=== PATIENT | female | born 1945 | race Caucasian/White ===

== ENCOUNTER 2017-09-05 08:25 | Day surgery (SDC) | payer MEDICARE ==
[~2017-09-05] VITALS: Ht 154.9 cm; Wt 53.9 kg
[~2017-09-05 08:25] MED LIST: ACETAMINOPHEN 325 MG TAB PO PRN; ALLO100T PO; ATEN50TA2 PO; BIMA01SOL OU; BSS with VANC/TOB/EPI for EYE CASES IR ONE; CALC600T60 PO; COSO1SOL3 OU; CYCLOPENTOLATE 2% OPHTH SOLN 2ML BTL OD ONE; EYE-TAB2 PO; FURO40TA2 PO; LIDOCAINE 3.5 % 1ML OPHTH TOPICAL GEL OU ONE; MAGN1TAB25 PO; OFLOXACIN 0.3 % (OCUFLOX) OPTH SOL 5ML OD ONE; PHENYLEPHRINE 2.5% OPHTH SOL 2ML OD ONE; POTA1TAB23 PO; PROPARACAINE 0.5% OPHTH SOL 15ML XX PRN; TROPICAMIDE 1% OPHTH SOLN 2ML OD ONE; TYLE500T78 PO; VITA100067 PO
[2017-09-05] MEDS ORDERED: MAGN64TASA PO (09:17)
[2017-09-05] MEDS ORDERED: POVIDONE-IODINE 5% OPHTH PREP SOL 30ML As Ordered ONE (10:02)
[2017-09-05] MEDS ORDERED: HEALON DUET (HEALON 10MG/ML 0.55ML & HEALON ENDOCOAT 30MG/ML 0.85ML) As Ordered ONE (10:02)
[2017-09-05] MEDS ORDERED: LIDOCAINE 1% SDV 5 ML VIAL As Ordered ONE (10:02)
[2017-09-05] MEDS ORDERED: MIDAZOLAM INJ 2 MG/2 ML VIAL (J2250) As Ordered ONE (10:05)
[2017-09-05] MEDS ORDERED: fentaNYL 100 MCG/2 ML INJECTION (J3010) As Ordered ONE (10:05)
[2017-09-05] MEDS ORDERED: MOXIFLOXACIN IN BSS 0.25MG/0.25ML INTRACAMERAL INJ (OR EYE ONLY)(J2280) As Ordered ONE (10:27)
[2017-09-05 11:15] VITALS: BP 175/82
[2017-09-05] MEDS ORDERED: TRIMETHOBENZAMIDE 300 MG CAP PO PRN (11:15)
[2017-09-05] MEDS ORDERED: KETOROLAC 0.5% OPHTH SOLN XX ONE (11:15)
[2017-09-05] MEDS ORDERED: AcetaZOLAMIDE 500 MG ER CAP PO ONE (11:15)
--- NOTE | 2017-09-14 14:02 | RO ---
DATE OF PROCEDURE: 09/05/2017 PREOPERATIVE DIAGNOSIS: Cataract right eye and glaucoma right eye. POSTOPERATIVE DIAGNOSIS: cataract right eye and glaucoma right eye. PROCEDURE: Phacoemulsification with intraocular lens implantation JUAN R, power 23 diopters, right eye and endocyclophotocoagulation right eye. SURGEON: Mino Robles MD COMMERCIAL FIELD INSPECTOR: None. ANESTHESIA: COMPLICATIONS: None. PROCEDURE IN DETAIL: The patient was brought to the operating room and laid in supine position. The eye was prepped and draped in a sterile fashion for ophthalmic surgery and a lid speculum was placed. A side port incision was made and EndoCoat was injected into the anterior chamber. A temporal clear corneal incision was then made with a 2.5 mm keratome and capsulorrhexis done. After hydrodissection, phacoemulsification was done in a divide and conquer method within the capsular bag. The extra cortical material was then aspirated using irrigation and aspiration cannula. Healon was then placed in the capsular bag followed by placement of the intraocular lens. Healon was then placed in the ciliary sulcus to visualize the ciliary processes on the video screen with the help of the EndoProbe. The endocyclophotocoagulation was then done along 280 degrees at 0.25 milliwatts. Good results were noted as noted by the shrinking of the ciliary processes. Excess viscoelastic was then aspirated. Wound was hydrated. Lid speculum removed and patient returned to the recovery room in stable condition.
== END 2017-09-05 11:45 | disposition home or self-care (01) ==
LOC: M SDC 08:25
PROVIDERS: ATTEND Ophthalmology
DX: H26.9 Unspecified cataract (principal); H40.9 Unspecified glaucoma; I10 Essential (primary) hypertension; E78.5 Hyperlipidemia, unspecified; M10.9 Gout, unspecified; J44.9 Chronic obstructive pulmonary disease, unspecified; Z88.0 Allergy status to penicillin; Z79.899 Other long term (current) drug therapy; Z90.710 Acquired absence of both cervix and uterus
CPT/HCPCS: 66711; 66984; J2250; J2280; J3010; V2632

== ENCOUNTER 2018-03-20 06:13 | Day surgery (SDC) | payer MEDICARE ==
[~2018-03-20 06:13] MED LIST changes: +ACETAMINOPHEN 325 MG TAB PO; -ACETAMINOPHEN 325 MG TAB PO PRN; -ALLO100T PO; -ATEN50TA2 PO; -BIMA01SOL OU; -BSS with VANC/TOB/EPI for EYE CASES IR ONE; -CALC600T60 PO; -COSO1SOL3 OU; -CYCLOPENTOLATE 2% OPHTH SOLN 2ML BTL OD ONE; -EYE-TAB2 PO; -FURO40TA2 PO; -LIDOCAINE 3.5 % 1ML OPHTH TOPICAL GEL OU ONE; -MAGN1TAB25 PO; -OFLOXACIN 0.3 % (OCUFLOX) OPTH SOL 5ML OD ONE; -PHENYLEPHRINE 2.5% OPHTH SOL 2ML OD ONE; -POTA1TAB23 PO; -PROPARACAINE 0.5% OPHTH SOL 15ML XX PRN; +SLF 3 ML SYR IV; -TROPICAMIDE 1% OPHTH SOLN 2ML OD ONE; -TYLE500T78 PO; -VITA100067 PO
[2018-03-20] MEDS: ACETYLCHOLINE OPHTH SOLN 1% 2ML (MIOCHOL-E) As Ordered (06:33)
[2018-03-20] MEDS: CYCLOPENTOLATE 2% OPHTH SOLN 2ML BTL OS (06:39)
[2018-03-20] MEDS: SLF 3 ML SYR IV (06:39)
[2018-03-20] MEDS: TROPICAMIDE 1% OPHTH SOLN 2ML OS (06:39)
[2018-03-20] MEDS: LIDOCAINE 3.5 % 1ML OPHTH TOPICAL GEL OU (06:39)
[2018-03-20] MEDS: OFLOXACIN 0.3 % (OCUFLOX) OPTH SOL 5ML OS (06:39)
[2018-03-20] MEDS: PHENYLEPHRINE 2.5% OPHTH SOL 2ML OS (06:39)
[2018-03-20] MEDS ORDERED: PHENYLEPHRINE HCL 10 % OPHTH. SOL 5ML OS (07:00)
[2018-03-20] MEDS ORDERED: PROPARACAINE 0.5% OPHTH SOL 15ML OS (07:01)
[2018-03-20] MEDS ORDERED: fentaNYL 100 MCG/2 ML INJECTION (J3010) As Ordered (07:25)
[2018-03-20] MEDS ORDERED: MIDAZOLAM INJ 2 MG/2 ML VIAL (J2250) As Ordered (07:25)
[2018-03-20] MEDS: POVIDONE-IODINE 5% OPHTH PREP SOL 30ML As Ordered (07:35)
[2018-03-20] MEDS: LIDOCAINE 1% SDV 5 ML VIAL As Ordered (07:40)
[2018-03-20] MEDS: BSS with VANC/TOB/EPI for EYE CASES IR (07:41)
[2018-03-20] MEDS: HEALON DUET (HEALON 10MG/ML 0.55ML & HEALON ENDOCOAT 30MG/ML 0.85ML) As Ordered (07:41)
[2018-03-20] MEDS ORDERED: AcetaZOLAMIDE 500 MG ER CAP As Ordered (07:54)
[2018-03-20] MEDS: AcetaZOLAMIDE 500 MG ER CAP PO (08:09)
[2018-03-20] MEDS: KETOROLAC 0.5% OPHTH SOLN OS (08:09)
[2018-03-20] MEDS ORDERED: ACETAMINOPHEN TAB 650MG DOSE (2X325MG) PO (08:15)
[2018-03-20] MEDS ORDERED: LR 1,000 ML IV (08:15)
[2018-03-20] MEDS ORDERED: TRIMETHOBENZAMIDE 300 MG CAP PO (08:15)
== END 2018-03-20 08:35 | disposition home or self-care (01) ==
LOC: M SDC 06:13
DX: H26.9 Unspecified cataract (principal); H40.812 Glaucoma with increased episcleral venous pressure, left eye; I10 Essential (primary) hypertension; Z88.1 Allergy status to other antibiotic agents; Z79.899 Other long term (current) drug therapy; Z87.891 Personal history of nicotine dependence
CPT/HCPCS: 66984

== ENCOUNTER → 2020-10-30 | Outpatient (CLI) | payer MEDICARE ==
[~2020-10-30] MED LIST changes: -ACETAMINOPHEN 325 MG TAB PO; +ALLO100T PO; +ATEN50TA2 PO; +BIMA01SOL OU; +BRIM0.2S13 OU; +CALC600T60 PO; +COSO1SOL3 OU; +EYE-TAB2 PO; +FURO40TA2 PO; +MAGN1TAB26 PO; +MAGN64TASA PO; +POTA1TAB23 PO; -SLF 3 ML SYR IV; +TYLE500T78 PO; +VITA100067 PO
[2020-10-30 12:26] LABS: HEMATOCRIT 40.7 % (36.0-47.0); HEMOGLOBIN 13.5 g/dl (12.0-15.5); MEAN CORPUSCULAR HEMOGLOBIN 32.5 pg (27.0-33.0); MEAN CORPUSCULAR HGB CONC 33.2 g/dl (32.0-36.5); MEAN CORPUSCULAR VOLUME 97.8 fl (80.0-96.0); RED BLOOD COUNT 4.16 10^6/uL (4.00-5.40); WHITE BLOOD COUNT 7.9 10^3/uL (4.0-10.0)
[2020-10-30 12:27] LABS: PLATELET COUNT, AUTOMATED 137 10^3/uL (150-450)
[2020-10-30 12:50] LABS: ALBUMIN 3.5 GM/DL (3.2-5.2); ALT/SGPT 22 U/L (12-78); BILIRUBIN,TOTAL 0.8 MG/DL (0.2-1.0); BLOOD UREA NITROGEN 16 MG/DL (7-18); CALCIUM LEVEL 8.3 MG/DL (8.8-10.2); CARBON DIOXIDE LEVEL 31 MEQ/L (21-32); CHLORIDE LEVEL 102 MEQ/L (98-107); CHOLESTEROL LEVEL 214 MG/DL (<200); CREATININE FOR GFR 0.73 MG/DL (0.55-1.30); GLOMERULAR FILTRATION RATE > 60.0 (>39); GLUCOSE, FASTING 115 MG/DL (70-100); HDL CHOLESTEROL 55 MG/DL (>40); LDL CHOLESTEROL 118 MG/DL (<100); MAGNESIUM LEVEL 1.4 MG/DL (1.8-2.4); NON-HDL-C 159 MG/DL; SODIUM LEVEL 140 MEQ/L (136-145); TOTAL PROTEIN 7.3 GM/DL (6.4-8.2); TRIGLYCERIDES LEVEL 203 MG/DL (<150)
== END ==
LOC: M WUC 08:34
PROVIDERS: ATTEND Family Medicine
DX: E55.9 Vitamin D deficiency, unspecified (principal); I10 Essential (primary) hypertension; E83.42 Hypomagnesemia

== ENCOUNTER → 2021-05-07 | Outpatient (CLI) | payer MEDICARE | LOC: M WHC 10:45 | PROVIDERS: ATTEND Family Medicine | DX: M85.851 Other specified disorders of bone density and structure, right thigh (principal); M85.852 Other specified disorders of bone density and structure, left thigh ==

== ENCOUNTER → 2023-12-12 | Outpatient (CLI) | payer MEDICARE ==
[~2023-12-12] MED LIST changes: -COSO1SOL3 OU; +DORZ10DR10 OU
== END ==
LOC: M WUC 11:03
PROVIDERS: ATTEND Family Medicine
DX: J44.9 Chronic obstructive pulmonary disease, unspecified (principal); M47.892 Other spondylosis, cervical region; M50.322 Other cervical disc degeneration at C5-C6 level; M50.323 Other cervical disc degeneration at C6-C7 level; M47.894 Other spondylosis, thoracic region

== ENCOUNTER → 2024-09-05 | Outpatient (CLI) | payer MEDICARE | LOC: M WHC 11:04 | PROVIDERS: ATTEND Family Medicine | DX: Z13.820 Encounter for screening for osteoporosis (principal); M85.852 Other specified disorders of bone density and structure, left thigh; M85.851 Other specified disorders of bone density and structure, right thigh ==